=== PATIENT | female | born 1975 | race Caucasian/White ===

== ENCOUNTER → 2017-08-15 | Outpatient (CLI) | payer OTHER ==
[~2017-08-15] VITALS: Ht 137.2 cm; Wt 52.1 kg
[~2017-08-15] MED LIST: CELEXA20 MG PO; DEPAKOTE250 MG PO; SEROQUEL100 MG PO; SEROQUEL200 MG PO; VITAMIN D2000 UNI1 PO; ZOCOR10 MG PO
[2017-08-15 07:46] VITALS: BP 129/68
== END | disposition home or self-care (01) ==
LOC: OPR 06:56
PROC: B030Y0Z Magnetic Resonance Imaging (MRI) of Brain using Other Contrast, Unenhanced and Enhanced (ICD-10-PCS; principal; 2017-08-15)
DX: R26.81 Unsteadiness on feet (principal); F91.9 Conduct disorder, unspecified
CPT/HCPCS: 70553; J2250; J2405